=== PATIENT | male | born 1965 | race Caucasian/White ===

== ENCOUNTER 2018-04-19 13:41 | Outpatient (CLI) | payer OTHER ==
[~2018-04-19 13:41] MED LIST: DOLOGEN CAPLET1 EACH PO; IBUPROFEN600 MG PO; RYBIX ODT50 MG PO
== END 2018-04-19 13:52 | disposition home or self-care, planned readmission (81) ==
LOC: MRI 13:41
DX: M54.2 Cervicalgia (principal); M54.5 Low back pain
CPT/HCPCS: 72141